=== PATIENT | male | born 1970 | race Caucasian/White ===

== ENCOUNTER 2020-01-11 13:26 | Observation (INO) | payer BC ==
[2020-01-11 14:03] LABS: Basophils # (A) 0.1 k/uL (0-0.2); Basophils % (A) 1 %; Eosinophils # (A) 0.1 k/uL (0-0.7); Eosinophils % (A) 1 %; HCT 40.9 % (39.0-53.0); HGB 13.5 gm/dL (13.0-17.5); Lymphocytes # (A) 2.2 k/uL (1.0-4.8); Lymphocytes % (A) 23 %; MCV 96.9 fL (80.0-100.0); Mean Platelet Volume 7.4; Monocytes # (A) 0.5 k/uL (0-1.0); Monocytes % (A) 5 %; Neutrophils # (A) 6.3 k/uL (1.3-7.7); Neutrophils % (A) 68 %; Platelet Count 278 k/uL (150-450); RBC 4.22 m/uL (4.30-5.90); RDW 11.9 % (11.5-15.5); WBC 9.3 k/uL (3.8-10.6)
--- NOTE | 2020-01-11 14:07 | ED ---
General Adult HPI - General Chief complaint: Chest Pain Stated complaint: Chest Pain, MONICA Time Seen by Provider: 01/11/20 13:32 Source: patient, RN notes reviewed, old records reviewed Mode of arrival: wheelchair Limitations: no limitations - History of Present Illness Initial comments: 49-year-old male history of hypertension diabetes resented for evaluation of chest discomfort, palpitations. He's had symptoms for the past several days. He denies associated diaphoresis or vomiting. He has no known history of coronary artery disease but he has a strong family history of premature coronary artery disease. He is compliant with his medications. He is a nonsmoker. - Related Data Allergies Allergy/AdvReac Type Severity Reaction Status Date / Time Iodinated Contrast Media Allergy Swelling Verified 01/11/20 13:34 sulfamethoxazole Allergy Rash/Hives Verified 01/11/20 13:34 [From Bactrim] trimethoprim [From Bactrim] Allergy Rash/Hives Verified 01/11/20 13:34 Review of Systems ROS Statement: Those systems with pertinent positive or pertinent negative responses have been documented in the HPI. ROS Other: All systems not noted in ROS Statement are negative. Past Medical History Past Medical History: Diabetes Mellitus, Hyperlipidemia, Hypertension History of Any Multi-Drug Resistant Organisms: None Reported Past Surgical History: Hernia Repair, Joint Replacement, Orthopedic Surgery Additional Past Surgical History / Comment(s): carpal tunnel Past Psychological History: No Psychological Hx Reported Smoking Status: Current every day smoker Past Alcohol Use History: Occasional Past Drug Use History: None Reported General Exam Limitations: no limitations General appearance: alert, in no apparent distress Head exam: Present: atraumatic, normocephalic Eye exam: Present: normal appearance, PERRL ENT exam: Present: normal exam Neck exam: Present: normal inspection. Absent: tenderness, meningismus Respiratory exam: Present: normal lung sounds bilaterally. Absent: respiratory distress, wheezes Cardiovascular Exam: Present: regular rate, normal rhythm GI/Abdominal exam: Present: soft. Absent: distended, tenderness Extremities exam: Present: normal inspection, normal capillary refill. Absent: pedal edema Neurological exam: Present: alert, oriented X3, CN II-XII intact. Absent: motor sensory deficit Psychiatric exam: Present: normal affect, normal mood Skin exam: Present: warm, dry, intact. Absent: cyanosis, diaphoretic Course Vital Signs 07/06/2001/11/20 01/11/20 13:31 13:41 13:49 Temperature 98.9 F Pulse Rate 78 73 73 Respiratory 18 27 H 18 Rate Blood Pressure 148/86 130/87 O2 Sat by Pulse 99 98 97 Oximetry 01/11/20 01/11/20 01/11/20 13:50 14:00 14:10 Temperature Pulse Rate 72 71 Respiratory 15 16 Rate Blood Pressure 130/87 130/87 132/80 O2 Sat by Pulse 97 97 Oximetry 01/11/20 14:20 Temperature Pulse Rate 71 Respiratory 22 Rate Blood Pressure 132/80 O2 Sat by Pulse 97 Oximetry EKG Findings - EKG Comments: EKG Findings:: EKG: Normal sinus rhythm, rightward axis, rate of 74, CA interval 206 QRS duration 94, QTC 421, no ST segment elevation. Medical Decision Making - Medical Decision Making 49-year-old male presenting for evaluation of chest discomfort, palpitations. Patient has multiple risk factors including diabetes, hypertension, obesity and a strong family history of coronary artery disease. He himself has no known coronary artery disease. His EKG is sinus rhythm with no ST segment elevation. Chest x-ray negative for acute cardiac primary disease. Normal CBC, normal CMP, negative initial troponin. Patient will be kept in observation for serial cardiac enzymes, telemetry, and cardiology consultation. Case is discussed with Dr. Greenberg who will admit. - Lab Data Result diagrams: 01/11/20 13:49 01/11/20 13:49 Lab Results 01/11/20 01/11/20 01/11/20 Range/Units 13:49 13:49 13:49 WBC 9.3 (3.8-10.6) k/uL RBC 4.22 L (4.30-5.90) m/uL Hgb 13.5 (13.0-17.5) gm/dL Hct 40.9 (39.0-53.0) % MCV 96.9 (80.0-100.0) fL MCH 32.0 (25.0-35.0) pg MCHC 33.0 (31.0-37.0) g/dL RDW 11.9 (11.5-15.5) % Plt Count 278 (150-450) k/uL Neutrophils % 68 % Lymphocytes % 23 % Monocytes % 5 % Eosinophils % 1 % Basophils % 1 % Neutrophils # 6.3 (1.3-7.7) k/uL Lymphocytes # 2.2 (1.0-4.8) k/uL Monocytes # 0.5 (0-1.0) k/uL Eosinophils # 0.1 (0-0.7) k/uL Basophils # 0.1 (0-0.2) k/uL PT 10.4 (9.0-12.0) sec INR 1.0 (<1.2) APTT 24.7 (22.0-30.0) sec Sodium 139 (137-145) mmol/L Potassium 3.8 (3.5-5.1) mmol/L Chloride 103 (98-107) mmol/L Carbon Dioxide 25 (22-30) mmol/L Anion Gap 11 mmol/L BUN 20 (9-20) mg/dL Creatinine 0.80 (0.66-1.25) mg/dL Est GFR (CKD-EPI)AfAm >90 (>60 ml/min/1.73 sqM) Est GFR (CKD-EPI)NonAf >90 (>60 ml/min/1.73 sqM) Glucose 207 H (74-99) mg/dL Calcium 9.2 (8.4-10.2) mg/dL Magnesium 1.7 (1.6-2.3) mg/dL Total Bilirubin 0.5 (0.2-1.3) mg/dL AST 45 (17-59) U/L ALT 63 H (4-49) U/L Alkaline Phosphatase 71 (38-126) U/L Troponin I (0.000-0.034) ng/mL NT-Pro-B Natriuret Pep pg/mL Total Protein 6.8 (6.3-8.2) g/dL Albumin 4.3 (3.5-5.0) g/dL 01/11/20 01/11/20 Range/Units 13:49 13:49 WBC (3.8-10.6) k/uL RBC (4.30-5.90) m/uL Hgb (13.0-17.5) gm/dL Hct (39.0-53.0) % MCV (80.0-100.0) fL MCH (25.0-35.0) pg MCHC (31.0-37.0) g/dL RDW (11.5-15.5) % Plt Count (150-450) k/uL Neutrophils % % Lymphocytes % % Monocytes % % Eosinophils % % Basophils % % Neutrophils # (1.3-7.7) k/uL Lymphocytes # (1.0-4.8) k/uL Monocytes # (0-1.0) k/uL Eosinophils # (0-0.7) k/uL Basophils # (0-0.2) k/uL PT (9.0-12.0) sec INR (<1.2) APTT (22.0-30.0) sec Sodium (137-145) mmol/L Potassium (3.5-5.1) mmol/L Chloride (98-107) mmol/L Carbon Dioxide (22-30) mmol/L Anion Gap mmol/L BUN (9-20) mg/dL Creatinine (0.66-1.25) mg/dL Est GFR (CKD-EPI)AfAm (>60 ml/min/1.73 sqM) Est GFR (CKD-EPI)NonAf (>60 ml/min/1.73 sqM) Glucose (74-99) mg/dL Calcium (8.4-10.2) mg/dL Magnesium (1.6-2.3) mg/dL Total Bilirubin (0.2-1.3) mg/dL AST (17-59) U/L ALT (4-49) U/L Alkaline Phosphatase (38-126) U/L Troponin I <0.012 (0.000-0.034) ng/mL NT-Pro-B Natriuret Pep 60 pg/mL Total Protein (6.3-8.2) g/dL Albumin (3.5-5.0) g/dL Disposition Clinical Impression: Chest pain Disposition: ADMITTED IP TO THIS [facility] Condition: Stable Is patient prescribed a controlled substance at d/c from ED?: No Referrals: Valorie Recio MD [Primary Care Provider] - 1-2 days Decision to Admit Reason: Admit from EC Decision Date: 01/11/20 Decision Time: 14:46
[2020-01-11 14:11] LABS: Partial Thromboplastin Time 24.7 sec (22.0-30.0); Prothrombin Time 10.4 sec (9.0-12.0)
[2020-01-11 14:13] LABS: ALT 63 U/L (4-49); AST 45 U/L (17-59); African American GFR (CKD) >90 (>60 ml/min/1.73 sqM); Albumin 4.3 g/dL (3.5-5.0); Alkaline Phosphatase 71 U/L (38-126); Anion Gap 11 mmol/L; Blood Urea Nitrogen 20 mg/dL (9-20); Calcium 9.2 mg/dL (8.4-10.2); Carbon Dioxide 25 mmol/L (22-30); Chloride 103 mmol/L (98-107); Glucose 207 mg/dL (74-99); Magnesium 1.7 mg/dL (1.6-2.3); Non-African American GFR(CKD) >90 (>60 ml/min/1.73 sqM); Potassium 3.8 mmol/L (3.5-5.1); Sodium 139 mmol/L (137-145); Total Bilirubin 0.5 mg/dL (0.2-1.3); Total Protein 6.8 g/dL (6.3-8.2)
--- NOTE | 2020-01-11 14:24 | XR ---
EXAMINATION TYPE: XR chest 2V DATE OF EXAM: 01/11/2020 COMPARISON: NONE HISTORY: Chest pain, palpitations and shortness of TECHNIQUE: Frontal and lateral views of the chest are obtained. FINDINGS: There is no focal air space opacity, pleural effusion, or pneumothorax seen. The cardiac silhouette size is within normal limits. The osseous structures are intact. IMPRESSION: No acute cardiopulmonary process.
[2020-01-11] MEDS ORDERED: ASPIRIN 325 MG TAB PO STA (14:43)
[2020-01-11] MEDS ORDERED: ACETAMINOPHEN TAB 325 MG TAB PO PRN (14:47)
[2020-01-11] MEDS ORDERED: NALOXONE 0.4 MG/ML 1 ML VIAL IV PRN (14:47)
--- NOTE | 2020-01-11 15:50 | P.HPIM ---
History of Present Illness H&P Date: 01/11/20 The patient is a 49-year-old male with a PMH of hypertension, hyperlipidemia, and type II DM who presented to the ED with complaints of palpitations and chest discomfort. The patient reports that he was in his usual state of health until day before yesterday when he developed palpitations in the evening time along with a minor 2-3 out of 10 left-sided chest discomfort. He didn't think much of it and went to sleep. Upon awakening, he felt back to his baseline though his palpitations and discomfort returned at about 5 PM yesterday, worse than the previous day. He again didn't wish to seek medical attention though continued having pain until he went to bed that night. Upon waking up this morning, he still had the discomfort and palpitations at which time he decided to come to the emergency room. His at the bedside who is an RN auscultated his heart and noticed that he was having extra beats. He denied shortness of breath, nausea, vomiting, or diaphoresis. Also denied fever, chills, cough, abdominal pain. In the emergency room, EKG revealed a normal sinus rhythm at 74 bpm with a rightward axis as reviewed by me with QTC 421. Chest x-ray was unremarkable. Laboratory evaluation revealed troponin less than 0.012, WBC count 9.3, hemoglobin 13.5, platelets 278, sodium 139, potassium 3.8, BUN 20, creatinine 0.80, BNP 60. The patient is being admitted under observation status to rule out ACS and cardiology evaluation. Review of Systems Pertinent positives and negatives as discussed in HPI, a complete review of systems was performed and all other systems are negative. Past Medical History Past Medical History: Diabetes Mellitus, Hyperlipidemia, Hypertension History of Any Multi-Drug Resistant Organisms: None Reported Past Surgical History: Hernia Repair, Joint Replacement, Orthopedic Surgery Additional Past Surgical History / Comment(s): carpal tunnel Past Psychological History: No Psychological Hx Reported Smoking Status: Current every day smoker Past Alcohol Use History: Occasional Past Drug Use History: None Reported Medications and Allergies Home Medications Medication Instructions Recorded Confirmed Type Atorvastatin [Lipitor] 40 mg PO HS 01/11/20 01/11/20 History Hydrochlorothiazide 25 mg PO DAILY 01/11/20 01/11/20 History Lisinopril 20 mg PO BID 01/11/20 01/11/20 History Multivitamins, Thera [Multivitamin 1 tab PO DAILY 01/11/20 01/11/20 History (formulary)] hydrALAZINE HCL [Apresoline] 100 mg PO BID 01/11/20 01/11/20 History metFORMIN HCL [Glucophage] 1,000 mg PO BID 01/11/20 01/11/20 History sitaGLIPtin [Januvia] 100 mg PO DAILY 01/11/20 01/11/20 History traZODone HCL 50 mg PO HS PRN 01/11/20 01/11/20 History Allergies Allergy/AdvReac Type Severity Reaction Status Date / Time Iodinated Contrast Media Allergy Swelling Verified 01/11/20 15:23 sulfamethoxazole Allergy Rash/Hives Verified 01/11/20 15:23 [From Bactrim] trimethoprim [From Bactrim] Allergy Rash/Hives Verified 01/11/20 15:23 Physical Exam Vitals: Vital Signs Temp Pulse Resp BP Pulse Ox 01/11/20 15:23 98.9 F 65 18 126/72 97 01/11/20 14:50 65 18 126/72 97 01/11/20 14:40 73 17 126/72 96 01/11/20 14:30 68 17 132/80 97 01/11/20 14:20 71 22 132/80 97 01/11/20 14:10 132/80 01/11/20 14:00 71 16 130/87 97 01/11/20 13:50 72 15 130/87 97 01/11/20 13:49 73 18 130/87 97 01/11/20 13:41 73 27 H 98 01/11/20 13:31 98.9 F 78 18 148/86 99 Intake and Output 01/11/20 01/11/20 01/11/20 06:59 14:59 22:59 Other: Weight 116.891 kg General: non toxic, no distress, appears at stated age, morbidly obese Derm: no unusual rashes/lesions no unusual ecchymoses, warm, dry Head: atraumatic, normocephalic, symmetric Eyes: EOMI, no lid lag, anicteric sclera, pupils equal round reactive to light ENT: Nose and ears atraumatic, no thrush, no pharyngeal erythema Neck: No thyromegaly, no cervical lymphadenopathy, trachea midline, supple Mouth: no lip lesion, mucus membranes moist Cardiovascular: S1S2 reg, no murmur, positive posterior tibial pulse bilateral, no edema, capillary refill less than 2 seconds, no chest wall tenderness Lungs: CTA bilateral, no rhonchi, no rales , no accessory muscle use Abdominal: soft, nontender to palpation, no guarding, no appreciable organomegaly, normal bowel sounds Ext: no gross muscle atrophy, muscle strength 5 out of 5 in all 4 extremities grossly, no contractures, Neuro: CN II-XI grossly intact, light touch intact all 4 extremities, finger to nose within normal limits, Psych: Alert, oriented, appropriate affect Results CBC & Chem 7: 01/11/20 13:49 01/11/20 13:49 Labs: Abnormal Lab Results - Last 24 Hours (Table) 01/11/20 01/11/20 Range/Units 13:49 13:49 RBC 4.22 L (4.30-5.90) m/uL Glucose 207 H (74-99) mg/dL ALT 63 H (4-49) U/L Assessment and Plan Plan: Chest pain and palpitations, rule out ACS -Cardiac consult -Cardiac monitoring -Trend troponin -Continue with aspirin Type II DM with hyperglycemia -Check A1c -Hold oral hypoglycemics -Lispro sliding scale with blood glucose monitoring Hypertension, hyperlipidemia -Continue with home meds DVT prophylaxis -Heparin subq The patient is admitted with an anticipated less than 2 midnight stay for evaluation of chest pain CODE STATUS: Full Code Discussed with: Patient Anticipated discharge date: 1-[address]: Home A total of 35 minutes was spent on the care of this complex patient more than 50% of the time was spent in counseling and care coordination.
[2020-01-11] MEDS ORDERED: traZODone HCL 50 MG TAB PO PRN (15:58)
[2020-01-11 16:44] LABS: Glucose,Whole Blood 84 mg/dL (75-99)
[2020-01-11] MEDS: HEPARIN SODIUM,PORCINE 5,000 UNIT/ML 1 ML VIAL SQ SCH ×2 (16:57→23:25)
[2020-01-11] MEDS ORDERED: INSULIN ASPART (NovoLOG) 100 UNIT/ML VIAL SQ SCH (17:30)
[2020-01-11] MEDS: hydrALAZINE HCL 50 MG TAB PO SCH (20:59)
[2020-01-11] MEDS ORDERED: ATORVASTATIN 40 MG TAB PO SCH (21:00)
[2020-01-11] MEDS: LISINOPRIL 20 MG TAB PO SCH (21:00)
[2020-01-11] MEDS: MORPHINE SULFATE 4 MG/ML SYRINGE IV PRN (21:00)
[2020-01-11 21:14] LABS: Glucose,Whole Blood 165 mg/dL (75-99)
[2020-01-11] MEDS: INSULIN ASPART (NovoLOG) 100 UNIT/ML VIAL SQ SCH (21:55)
[2020-01-12] MEDS: MORPHINE SULFATE 4 MG/ML SYRINGE IV PRN ×2 (00:49→04:03)
[2020-01-12 06:17] LABS: Glucose,Whole Blood 131 mg/dL (75-99)
[2020-01-12] MEDS ORDERED: ALPRAZolam 0.5 MG TAB PO PRN (08:31)
[2020-01-12] MEDS ORDERED: ASPIRIN 325 MG TAB PO STA (08:31)
[2020-01-12] MEDS ORDERED: SODIUM CHLORIDE 0.9% 1,000 ML in EMPTY BAG 1 BAG IV ONE (08:31)
[2020-01-12] MEDS ORDERED: ATORVASTATIN 80 MG TAB PO STA (08:31)
[2020-01-12] MEDS ORDERED: ALPRAZolam 0.25 MG TAB PO PRN (08:31)
[2020-01-12] MEDS ORDERED: NITROGLYCERIN SL TABS 0.4 MG TAB SUBLINGUAL PRN (08:31)
[2020-01-12] MEDS ORDERED: FAMOTIDINE 20 MG/2 ML VIAL IV STA (08:38)
[2020-01-12] MEDS ORDERED: methylPREDNISolone SOD SUCCI 125 MG/2 ML VIAL IV STA (08:38)
[2020-01-12] MEDS ORDERED: diphenhydrAMINE 50 MG/ML 1 ML VIAL IVP STA (08:38)
--- NOTE | 2020-01-12 08:43 | P.CRDCN ---
History of Present Illness History of present illness: HISTORY OF PRESENTING ILLNESS This is a pleasant 49-year-old male past medical history significant for hypertension, dyslipidemia, diabetes mellitus, daily tobacco use and significant family history for premature coronary artery disease. He denies personal history of coronary artery disease and does not follow with a backbreaker on a regular basis. We have been asked to see in consultation for chest pain. He states palpitations started Sunday night at rest after working all day and eating dinner. Sunday he woke up and the palpitations continued for most of the day. They were associated with some chest tightness, feeling light headed and mild shortness of breath, not related to activity or exertion. He states he has been diagnosed in the past with sleep apnea however he does not like using his CPAP, in fact he only used for 1-month after diagnosis many years ago. He states his father as well as his paternal uncles have all had premature coronary artery disease. His father started seeing a backbreaker in his 30's. DIAGNOSTICS EKG reveals sinus mechanism with nonspecific ST changes. Chest xray negative for an acute cardiopulmonary process. Laboratory reviewed, cardiac enzymes negative 3, CBC unremarkable, sodium 139, potassium 3.8, creatinine 0.8 with a GFR greater than 90 and magnesium 1.7. Current cardiac medications include hydralazine 100 mg twice a day, lisinopril 20 mg twice a day, hydrochlorothiazide 25 mg daily and atorvastatin 40 mg at bedtime. REVIEW OF SYSTEMS At the time of my exam: CONSTITUTIONAL: Denies fever or chills. CARDIOVASCULAR: Denies chest pain, shortness of breath, orthopnea, PND or palpitations. RESPIRATORY: Denies cough. GASTROINTESTINAL: Denies abdominal pain, diarrhea, constipation, nausea or vomiting. MUSCULOSKELETAL: Denies myalgias. NEUROLOGIC: Denies numbness, tingling or weakness. ENDOCRINE: Denies fatigue, weight change, polydipsia or polyurina. GENITOURINARY: Denies burning, hematuria or urgency with micturation. HEMATOLOGIC: Denies history of anemia or bleeding. PHYSICAL EXAMINATION Blood pressure 109/64 heart rate 66 afebrile and maintaining oxygen saturation on room air. CONSTITUTIONAL: No apparent distress. HEENT: Head is normocephalic. Pupils are equal, round. Sclerae anicteric. Mucous membranes of the mouth are moist. No JVD. No carotid bruit. CHEST EXAMINATION: Lungs are clear to auscultation. No chest wall tenderness is noted on palpation or with deep breathing. HEART EXAMINATION: Regular rate and rhythm. S1, S2 heard. Soft systolic ejection murmur at the left sternal border, no gallops or rub. ABDOMEN: Soft, nontender. Positive bowel sounds. EXTREMITIES: 2+ peripheral pulses, no lower extremity edema and no calf tenderness. NEUROLOGIC EXAMINATION: Patient is awake, alert and oriented x3. ASSESSMENT Chest pain, an acute coronary event has been ruled out Hypertension Dyslipidemia Diabetes mellitus Daily tobacco use Significant family history for premature coronary artery disease Obesity, BMI 36 PLAN Given his symptoms and risk factor profile he recommend proceeding with cardiac catheterization. I have discussed the risks, benefits and alternative therapies for the above-mentioned procedure and for both sedation/analgesia as well as necessary blood product administration, if indicated, as they pertain to this patient. The patient has indicated understanding and acceptance of the risks and procedures discussed. Questions have been answered appropriately and he is agreeableto move forward with the above stated procedure. Obtain 2-D echocardiogram and Doppler study to assess cardiac structure and function. Check lipid profile. Tobacco cessation recommended. Compliance with CPAP discussed at length. Further recommendations to follow based upon clinical course. Thank you kindly for this consultation. Nurse Practitioner note has been reviewed, I agree with a documented findings and plan of care. Patient was seen and examined. Past Medical History Past Medical History: Diabetes Mellitus, Hyperlipidemia, Hypertension History of Any Multi-Drug Resistant Organisms: None Reported Past Surgical History: Hernia Repair, Joint Replacement, Orthopedic Surgery Additional Past Surgical History / Comment(s): carpal tunnel Past Psychological History: No Psychological Hx Reported Smoking Status: Current every day smoker Past Alcohol Use History: Occasional Past Drug Use History: None Reported Medications and Allergies Home Medications Medication Instructions Recorded Confirmed Type Atorvastatin [Lipitor] 40 mg PO HS 01/11/20 01/11/20 History Hydrochlorothiazide 25 mg PO DAILY 01/11/20 01/11/20 History Lisinopril 20 mg PO BID 01/11/20 01/11/20 History Multivitamins, Thera [Multivitamin 1 tab PO DAILY 01/11/20 01/11/20 History (formulary)] hydrALAZINE HCL [Apresoline] 100 mg PO BID 01/11/20 01/11/20 History metFORMIN HCL [Glucophage] 1,000 mg PO BID 01/11/20 01/11/20 History sitaGLIPtin [Januvia] 100 mg PO DAILY 01/11/20 01/11/20 History traZODone HCL 50 mg PO HS PRN 01/11/20 01/11/20 History Allergies Allergy/AdvReac Type Severity Reaction Status Date / Time Iodinated Contrast Media Allergy Swelling Verified 01/11/20 15:23 sulfamethoxazole Allergy Rash/Hives Verified 01/11/20 15:23 [From Bactrim] trimethoprim [From Bactrim] Allergy Rash/Hives Verified 01/11/20 15:23 Physical Exam Vitals: Vital Signs Temp Pulse Pulse Resp BP BP Pulse Ox 01/12/20 04:00 97.8 F 66 18 109/64 97 01/12/20 00:00 97.8 F 66 18 142/80 97 01/11/20 20:00 98.1 F 75 18 141/66 96 01/11/20 15:24 98.8 F 66 12 145/84 94 L 01/11/20 15:23 98.9 F 65 18 126/72 97 01/11/20 14:50 65 18 126/72 97 01/11/20 14:40 73 17 126/72 96 01/11/20 14:30 68 17 132/80 97 01/11/20 14:20 71 22 132/80 97 01/11/20 14:10 132/80 01/11/20 14:00 71 16 130/87 97 01/11/20 13:50 72 15 130/87 97 01/11/20 13:49 73 18 130/87 97 01/11/20 13:41 73 27 H 98 01/11/20 13:31 98.9 F 78 18 148/86 99 Intake and Output 01/11/20 01/12/20 01/12/20 22:59 06:59 14:59 Intake Total 236 Balance 236 Intake: Oral 236 Other: Voiding Method Toilet Toilet # Voids 1 1 Weight 116.891 kg Results 01/11/20 13:49 01/11/20 13:49 Cardiac Enzymes 01/11/20 01/11/20 01/11/20 Range/Units 13:49 13:49 16:12 AST 45 (17-59) U/L Troponin I <0.012 <0.012 (0.000-0.034) ng/mL 01/11/20 Range/Units 18:27 AST (17-59) U/L Troponin I <0.012 (0.000-0.034) ng/mL Coagulation 01/11/20 Range/Units 13:49 PT 10.4 (9.0-12.0) sec APTT 24.7 (22.0-30.0) sec CBC 01/11/20 Range/Units 13:49 WBC 9.3 (3.8-10.6) k/uL RBC 4.22 L (4.30-5.90) m/uL Hgb 13.5 (13.0-17.5) gm/dL Hct 40.9 (39.0-53.0) % Plt Count 278 (150-450) k/uL Comprehensive Metabolic Panel 01/11/20 Range/Units 13:49 Sodium 139 (137-145) mmol/L Potassium 3.8 (3.5-5.1) mmol/L Chloride 103 (98-107) mmol/L Carbon Dioxide 25 (22-30) mmol/L BUN 20 (9-20) mg/dL Creatinine 0.80 (0.66-1.25) mg/dL Glucose 207 H (74-99) mg/dL Calcium 9.2 (8.4-10.2) mg/dL AST 45 (17-59) U/L ALT 63 H (4-49) U/L Alkaline Phosphatase 71 (38-126) U/L Total Protein 6.8 (6.3-8.2) g/dL Albumin 4.3 (3.5-5.0) g/dL Current Medications Generic Name Dose Route Start Last Admin Trade Name Freq PRN Reason Stop Dose Admin Acetaminophen 650 mg 01/11/20 14:47 Tylenol Tab PO Q6HR PRN Mild Pain or Fever > 100.5 Atorvastatin Calcium 40 mg 01/11/20 21:00 01/11/20 20:59 Lipitor PO 40 mg HS [facility] Administration Heparin Sodium (Porcine) 5,000 unit 01/11/20 16:00 01/11/20 23:25 Heparin SQ 5,000 unit Q8HR [facility] Administration Hydralazine HCl 100 mg 01/11/20 21:00 01/11/20 20:59 Apresoline PO 100 mg BID [facility] Administration Hydrochlorothiazide 25 mg 01/12/20 09:00 Hydrodiuril PO DAILY [facility] Insulin Aspart 0 unit 01/11/20 21:09 01/11/20 21:55 Novolog SQ Not Given AC-TID [facility] Protocol Lisinopril 20 mg 01/11/20 21:00 01/11/20 21:00 Zestril PO 20 mg BID [facility] Administration Morphine Sulfate 4 mg 01/11/20 14:47 01/12/20 04:03 Morphine Sulfate (Inj) IV 4 mg Q4HR PRN Administration Severe Pain Multivitamins 1 each 01/12/20 09:00 Theragran PO DAILY [facility] Naloxone HCl 0.2 mg 01/11/20 14:47 Narcan IV Q2M PRN Opioid Reversal Trazodone HCl 50 mg 01/11/20 15:58 01/12/20 00:48 Desyrel PO 50 mg HS PRN Administration Insomnia Intake and Output 01/11/20 01/12/20 01/12/20 22:59 06:59 14:59 Intake Total 236 Balance 236 Intake: Oral 236 Other: Voiding Method Toilet Toilet # Voids 1 1 Weight 116.891 kg 01/11/20 13:49 01/11/20 13:49
[2020-01-12] MEDS: INSULIN ASPART (NovoLOG) 100 UNIT/ML VIAL SQ SCH ×3 (08:59→16:25)
[2020-01-12] MEDS ORDERED: ASPIRIN 325 MG TAB PO SCH (09:00)
[2020-01-12] MEDS ORDERED: HYDROCHLOROTHIAZIDE 25 MG TAB PO SCH (09:00)
[2020-01-12] MEDS ORDERED: ASPIRIN 81 MG PO SCH (09:00)
[2020-01-12] MEDS ORDERED: MULTIVITAMINS, THERA 1 EACH TAB PO SCH (09:00)
[2020-01-12] MEDS ORDERED: LIDOCAINE 1% INJ 10MG/ML (20 ML MDV) ONE (09:36)
[2020-01-12] MEDS ORDERED: fentaNYL (PF) 50 MCG/ML 2 ML AMP ONE (09:36)
[2020-01-12] MEDS ORDERED: VERAPAMIL 2.5 MG/ML 2 ML AMP ONE (09:36)
[2020-01-12 09:43] LABS: Cholesterol 153 mg/dL (<200); HDL Cholesterol 33 mg/dL (40-60); LDL Cholesterol,Calculated 41 mg/dL (0-99); Triglycerides 395 mg/dL (<150)
[2020-01-12] MEDS ORDERED: methylPREDNISolone SOD SUCCI 125 MG/2 ML VIAL ONE (09:44)
[2020-01-12] MEDS ORDERED: methylPREDNISolone SOD SUCCI 125 MG/2 ML VIAL IV ONE (09:46)
[2020-01-12] MEDS ORDERED: fentaNYL (PF) 50 MCG/ML 2 ML AMP IV ONE (09:46)
[2020-01-12] MEDS ORDERED: IV FLUID CONTINUATION 850 ML IV ONE (09:47)
[2020-01-12] MEDS ORDERED: diphenhydrAMINE 50 MG/ML 1 ML VIAL IVP ONE (09:48)
[2020-01-12] MEDS ORDERED: diphenhydrAMINE 50 MG/ML 1 ML VIAL ONE (09:49)
[2020-01-12] MEDS ORDERED: LIDOCAINE 1% INJ 10MG/ML (20 ML MDV) SQ ONE (09:49)
[2020-01-12] MEDS ORDERED: VERAPAMIL SYRINGE (5 MG/10 ML) INTRAARTER ONE (09:55)
[2020-01-12] MEDS ORDERED: HEPARIN SODIUM 1,000 UN/ML (10ML VL) ONE (09:59)
[2020-01-12] MEDS ORDERED: HEPARIN SODIUM 1,000 UN/ML (10ML VL) IV ONE (09:59)
[2020-01-12] MEDS ORDERED: IOPAMIDOL-370 100ML BTL INJ ONE (10:03)
[2020-01-12] MEDS ORDERED: RX INFO: IV CONTRAST WAS GIVEN 1 EACH MISC MISCELLANE PRN (10:10)
[2020-01-12] MEDS ORDERED: SODIUM CHLORIDE 0.9% 1,000 ML IV SCH (10:15)
[2020-01-12] MEDS ORDERED: METOPROLOL TARTRATE 25 MG TAB PO SCH (10:15)
[2020-01-12] MEDS: HEPARIN SODIUM,PORCINE 5,000 UNIT/ML 1 ML VIAL SQ SCH (10:54)
[2020-01-12 11:01] LABS: Glucose,Whole Blood 168 mg/dL (75-99)
[2020-01-12] MEDS: hydrALAZINE HCL 50 MG TAB PO SCH (11:22)
--- NOTE | 2020-01-12 11:27 | CC ---
CARDIAC CATHETERIZATION REPORT Mr. Peck is a 49-year-old male with known history of hypertension, hyperlipidemia, diabetes mellitus, chronic tobacco use and a strong family history of coronary artery disease who presented with symptoms of palpitation, evidence of ventricular ectopic activity and symptoms of chest discomfort. He has no enzymatic changes but because of his multiple risk factors and his presentation, recommendation made regarding cardiac catheterization. The procedures, risks, and complication were discussed with the patient who is in full understanding and agreement. PROCEDURE: Patient was brought to the slab lifting supervisor in a fasting semi-sedated state after receiving fentanyl and Benadryl and achieving moderate conscious sedated state. Using Xylocaine anesthesia and Seldinger technique, a 6-Turkish sheath was introduced in the right radial artery. Selective right and left coronary angiography performed using 5-Turkish 3.5 bend right and left Nathaly catheter, multiple views of the coronary artery including hemiaxial views obtained. Following that, the right Nathaly catheter was used to cross the aortic valve and pressures were calculated. Following that, catheter and sheath were removed. Hemostasis was obtained with deployment of a TR band. There was no immediate complication. Patient is returned to his room in stable condition. Of note, patient received 5000 units of intravenous heparin as well as intra-arterial verapamil. FINDINGS: LEFT MAIN: This is a large-sized vessel, bifurcating into left circumflex, left anterior descending artery. Left main coronary artery has no evidence of high-grade stenosis. LEFT ANTERIOR DESCENDING ARTERY: This is a large-sized vessel, reaching toward the apex with a wraparound apex segment, giving rise to a large proximal diagonal branch, left anterior artery as well as branches have no evidence of obstructive coronary artery disease. LEFT CIRCUMFLEX: This is a nondominant, large size vessel giving rise to one obtuse marginal branch proximally. The left circumflex as well as branches have no evidence of obstructive coronary artery disease. RIGHT CORONARY ARTERY: This is a large dominant vessel, bifurcating distally into PDA and posterolateral segment branches. The right coronary artery and its branches have no evidence of obstructive coronary artery disease. LEFT VENTRICULOGRAM: Left ventriculogram was not performed. HEMODYNAMICS: There was no gradient across the aortic valve. The left ventricular end- diastolic pressure was 12-14 mmHg. CONCLUSION: 1. Normal coronary arteries. 2. Normal left ventricular end-diastolic pressure. RECOMMENDATION: In view of finding anatomy, I recommend continue medical therapy with the aggressive coronary risk modifications being initiated. Those findings and recommendation were discussed with the patient and his family and they are in full understanding and agreement. Duration of procedure is 21 minutes. MMODL / IJN: [id number] /
[2020-01-12 11:50] LABS: Hemoglobin A1C 7.5 % (4.0-6.0)
[2020-01-12] MEDS: LISINOPRIL 20 MG TAB PO SCH (14:34)
[2020-01-12 15:19] VITALS: BP 132/66; PULSE 79; RESP 20
[2020-01-12 15:38] VITALS: TEMP 97.4
[2020-01-12 16:23] LABS: Glucose,Whole Blood 286 mg/dL (75-99)
[2020-01-13] MEDS ORDERED: ASPIRIN 81 MG PO SCH (09:00)
--- NOTE | 2020-01-13 13:31 | ECHOF ---
Referral Reason:cp MEASUREMENTS -------- HEIGHT: 180.3 cm WEIGHT: 116.6 kg BP: RVIDd: 3.2 cm (< 3.3) IVSd: 1.3 cm (0.6 - 1.1) LVIDd: 4.8 cm (3.9 - 5.3) LVPWd: 1.3 cm (0.6 - 1.1) IVSs: 2.0 cm LVIDs: 2.8 cm LVPWs: 1.7 cm Ao Diam: 3.0 cm (2.0 - 3.7) AV Cusp: 1.9 cm (1.5 - 2.6) LA Diam: 2.8 cm (2.7 - 3.8) MV EXCURSION: 22.213 mm (> 18.000) MV EF SLOPE: 108 mm/s (70 - 150) EPSS: 0.3 cm MV E Daniel: 0.78 m/s MV DecT: 223 ms MV A Daneil: 0.49 m/s MV E/A Ratio: 1.58 RAP: 5.00 mmHg RVSP: 14.73 mmHg FINDINGS -------- Sinus rhythm. This was a technically difficult study with suboptimal views. The left ventricular size is normal. There is mild concentric left ventricular hypertrophy. Overa ll left ventricular systolic function is normal with, an EF between 55 - 60 %. The diastolic fillin g pattern is normal for the age of the patient 9.66. The right ventricle is normal in size. The left atrial size is normal. The right atrial size is normal. Lumason used The aortic valve is trileaflet, and appears structurally normal. No aortic stenosis or regurgitation. The mitral valve is normal. There is trace mitral regurgitation. The tricuspid valve appears structurally normal. Mild tricuspid regurgitation present. Right vent ricular systolic pressure is normal at < 35 mmHg. There is no pulmonic regurgitation present. The aortic root size is normal. IVC Not well visulized. There is no pericardial effusion. CONCLUSIONS -------- 1. This was a technically difficult study with suboptimal views. 2. There is mild concentric left ventricular hypertrophy. 3. Overall left ventricular systolic function is normal with, an EF between 55 - 60 %. 4. The left atrial size is normal. 5. Lumason used 6. The aortic valve is trileaflet, and appears structurally normal. No aortic stenosis or regurgitati on. 7. There is trace mitral regurgitation. 8. Mild tricuspid regurgitation present. 9. There is no pericardial effusion. [employer]AL CAR DELIVERER: Maddie Ledbetter RDCS
== END 2020-01-12 17:20 | disposition home or self-care (01) ==
LOC: EC 13:26 → 1SOBS 14:47 → 3NCARDOBS 01-12 10:35
PROVIDERS: ADMIT Internal Medicine; ATTEND Internal Medicine
DX: R07.89 Other chest pain (principal); R00.2 Palpitations; R42 Dizziness and giddiness; R06.02 Shortness of breath; I10 Essential (primary) hypertension; F17.200 Nicotine dependence, unspecified, uncomplicated; E78.5 Hyperlipidemia, unspecified; E66.01 Morbid (severe) obesity due to excess calories; Z68.36 Body mass index [BMI] 36.0-36.9, adult; E11.65 Type 2 diabetes mellitus with hyperglycemia; Z79.899 Other long term (current) drug therapy; Z79.84 Long term (current) use of oral hypoglycemic drugs; Z88.2 Allergy status to sulfonamides; Z91.041 Radiographic dye allergy status; G47.30 Sleep apnea, unspecified; Z91.19 Patient's noncompliance with other medical treatment and regimen; Z82.49 Family history of ischemic heart disease and other diseases of the circulatory system; Z20.828 Contact with and (suspected) exposure to other viral communicable diseases
CPT/HCPCS: 96372; 96374; 96376; 99285; 36415; 93005 ×2; 93306; 93458; 85379; 83880; 80061; 80053; 83735; 84484; 85025; 85610; 85730; 83036; 71046; G0378 ×3; C1769; C1894; U0003; J2270 ×2; J1200; J1644 ×2; J2930; J2001; J3010; Q9950; Q9967

== ENCOUNTER 2022-02-01 13:05 | Emergency (ER) | payer BC ==
[2022-02-01 14:41] VITALS: RESP 18
[2022-02-01] MEDS ORDERED: LIDOCAINE 2% INJ 20 MG/ML (20 ML MDV) SQ STA (16:22)
[2022-02-01] MEDS ORDERED: CEPHALEXIN 250 MG CAP PO STA (16:23)
--- NOTE | 2022-02-01 16:29 | ED ---
Skin/Abscess/FB HPI - General Chief complaint: Skin/Abscess/Foreign Body Stated complaint: Cyst on back Time Seen by Provider: 02/01/22 16:09 Source: patient Mode of arrival: ambulatory Limitations: no limitations - History of Present Illness Initial comments: Patient is a 51-year-old male who presents to the emergency department with a chief complaint of cyst on his back. Patient states he's had a cyst on his back for several years which increased in size causing pain for the past week. Patient states he went to his primary care provider on Sunday. They did not perform incision and drainage however the wound was draining therefore it was cultured. Patient states he received an antibiotic in the muscle and was sent home with doxycycline which he has been taking as directed since Sunday. Patient states the cyst is continuing to grow in size and causing severe pain. He denies history of MRSA previous abscess. States he has an appointment with a surgeon on 02/07. Denies fever, chills, and other concerns. - Related Data Home Medications Medication Instructions Recorded Confirmed Atorvastatin [Lipitor] 40 mg PO HS 01/11/20 01/11/20 Multivitamins, Thera [Multivitamin 1 tab PO DAILY 01/11/20 01/11/20 (formulary)] hydrALAZINE HCL [Apresoline] 100 mg PO BID 01/11/20 01/11/20 hydroCHLOROthiazide 25 mg PO DAILY 01/11/20 01/11/20 lisinopriL 20 mg PO BID 01/11/20 01/11/20 metFORMIN HCL [Glucophage] 1,000 mg PO BID 01/11/20 01/11/20 sitaGLIPtin [Januvia] 100 mg PO DAILY 01/11/20 01/11/20 traZODone HCL 50 mg PO HS PRN 01/11/20 01/11/20 Previous Rx's Medication Instructions Recorded Aspirin 81 mg PO DAILY #30 chew 01/12/20 Metoprolol Tartrate [Lopressor] 25 mg PO BID #60 tab 01/12/20 Cephalexin [Keflex] 500 mg PO Q6HR 5 Days #20 cap 02/01/22 Allergies Allergy/AdvReac Type Severity Reaction Status Date / Time Iodinated Contrast Media Allergy Swelling Verified 02/01/22 14:41 sulfamethoxazole Allergy Rash/Hives Verified 02/01/22 14:41 [From Bactrim] trimethoprim [From Bactrim] Allergy Rash/Hives Verified 02/01/22 14:41 Review of Systems ROS Statement: Those systems with pertinent positive or pertinent negative responses have been documented in the HPI. ROS Other: All systems not noted in ROS Statement are negative. Past Medical History Past Medical History: Diabetes Mellitus, Hyperlipidemia, Hypertension History of Any Multi-Drug Resistant Organisms: None Reported Past Surgical History: Hernia Repair, Joint Replacement, Orthopedic Surgery Additional Past Surgical History / Comment(s): carpal tunnel Past Psychological History: No Psychological Hx Reported Past Alcohol Use History: Occasional Past Drug Use History: None Reported General Exam Limitations: no limitations General appearance: alert, in no apparent distress Head exam: Present: atraumatic, normocephalic, normal inspection Eye exam: Present: normal appearance, PERRL, EOMI. Absent: scleral icterus, conjunctival injection, periorbital swelling Respiratory exam: Present: normal lung sounds bilaterally. Absent: respiratory distress, wheezes, rales, rhonchi, stridor Cardiovascular Exam: Present: regular rate, normal rhythm, normal heart sounds. Absent: systolic murmur, diastolic murmur, rubs, gallop, clicks Back exam: Present: other (5 by 3 inch abscess over left lower thoracic back ) Neurological exam: Present: alert, oriented X3, CN II-XII intact Psychiatric exam: Present: normal affect, normal mood Skin exam: Present: warm, dry, intact, normal color. Absent: rash Course Vital Signs 02/01/22 14:38 Temperature 98.9 F Pulse Rate 81 Respiratory 18 Rate Blood Pressure 133/81 O2 Sat by Pulse 98 Oximetry Procedures - Incision & Drainage Consent Obtained: verbal consent Site: other (back ) Size (cm): 5 (5 by 3 inches ) I&D Cleaning Method: Betadine Scalpel Used: #11 Needle Aspiration Performed?: Yes I&D Drainage Obtained: Pus, Blood Packing: Iodoform Culture Obtained?: Yes Patient Tolerated Procedure: well, no complications Medical Decision Making - Medical Decision Making This is a 51-year-old male who presents for evaluation of cyst. Thorough history and examination were performed. There is a 5 by 3 inch abscess over left lower thoracic back with significant induration. The abscess was incised with drainage of blood and pus. It was packed with iodoform packing. Culture pending. Abscess care discussed in detail. Patient will be discharged with Keflex. He'll continue doxycycline. He will follow up with his primary care provider as well as surgeon. Return parameters discussed. Patient verbalizes understanding and is agreeable to this plan. Dr. Ackerman is my attending. Disposition Clinical Impression: Abscess Disposition: HOME SELF-CARE Condition: Good Instructions (If sedation given, give patient instructions): Abscess Incision and Drainage (ED), Abscess (ED) Additional Instructions: Take antibiotic as directed. Continue previously prescribed doxycycline. Please keep packing in as long as possible to keep the pathway for continuous drainage. You may take the packing out when antibiotics are finished. Use warm compress throughout the day to assist drainage. Change dressing every 24 hours or if saturated. Keep wound clean and dry. Wash the wound with a mild soap during dressing change and be sure to dry thoroughly. If you need more dressing supplies or tape you can find some at a local pharmacy. Take Tylenol or Motrin for pain. Follow-up with primary care provider in 1 to 2 days. Follow up at surgical consult on 02/07 as scheduled. Return to the emergency department if you experience new, concerning, or worsening symptoms. Prescriptions: Cephalexin [Keflex] 500 mg PO Q6HR 5 Days #20 cap Is patient prescribed a controlled substance at d/c from ED?: No Referrals: Frank Rojo MD [Primary Care Provider] - 1-2 days Time of Disposition: 16:29
[2022-02-01] MEDS ORDERED: CEPHALEXIN 500 MG CAP PO STA (16:30)
[2022-02-01 17:17] VITALS: BP 144/98; PULSE 89; TEMP 98.6
== END 2022-02-01 17:17 | disposition home or self-care (01) ==
LOC: EC 13:05
DX: L02.212 Cutaneous abscess of back [any part, except buttock and flank] (principal); E11.9 Type 2 diabetes mellitus without complications; E78.5 Hyperlipidemia, unspecified; I10 Essential (primary) hypertension; Z79.84 Long term (current) use of oral hypoglycemic drugs; Z79.899 Other long term (current) drug therapy; Z91.041 Radiographic dye allergy status; Z88.2 Allergy status to sulfonamides
CPT/HCPCS: 99282; 10060; J2001